=== PATIENT | female | born 1965 | race Caucasian/White ===

== ENCOUNTER 2023-02-14 14:30 | Emergency (ER) | payer OTHER ==
[~2023-02-14] VITALS: Ht 160 cm; Wt 88.9 kg
[2023-02-14 15:18] VITALS: BP 153/83; PULSE 78; RESP 18; TEMP 98.6; O2SAT 99
[2023-02-14] MEDS ORDERED: KETOROLAC 30 MG/ML VIAL IM ONE (16:45)
[2023-02-14] MEDS ORDERED: IBUP-2213 PO (16:45)
[2023-02-14 17:26] VITALS: BP 135/80; PULSE 78; RESP 16; TEMP 98; O2SAT 100
== END 2023-02-14 17:26 | disposition home or self-care (01) ==
LOC: MED 14:30
DX: M72.2 Plantar fascial fibromatosis (principal); I10 Essential (primary) hypertension; Z79.899 Other long term (current) drug therapy
CPT/HCPCS: 96372; 99283; J1885